=== PATIENT | female | born 1975 | race African-American/Black ===

== ENCOUNTER 2017-09-10 16:33 | Emergency (ER) | payer MEDICARE ==
[~2017-09-10] VITALS: Ht 160 cm; Wt 120.0 kg
[2017-09-10] MEDS ORDERED: DOXYCYCL HYC100 M4 PO (16:51)
[2017-09-10] MEDS ORDERED: PROAIR HFA108 MCG/AC PO (16:51)
[2017-09-10 17:42] VITALS: BP 124/76
== END 2017-09-10 17:45 | disposition home or self-care (01) ==
LOC: ED 16:33
DX: J06.9 Acute upper respiratory infection, unspecified (principal); G25.81 Restless legs syndrome; K21.9 Gastro-esophageal reflux disease without esophagitis; K31.84 Gastroparesis; G62.9 Polyneuropathy, unspecified; N39.3 Stress incontinence (female) (male); G71.3 Mitochondrial myopathy, not elsewhere classified; F17.210 Nicotine dependence, cigarettes, uncomplicated